=== PATIENT | male | born 1955 | race Caucasian/White ===

== ENCOUNTER 2020-11-05 09:50 | Emergency (ER) | payer BC ==
[2020-11-05 09:55] VITALS: BP 161/90; PULSE 115; TEMP 97.6; BMI 25.8
[2020-11-05 11:20] LABS: BASO % 0.1 % (0-2.0); HEMATOCRIT 43.7 % (35.4-49); HEMOGLOBIN 14.6 GM/dL (11.7-16.9); LYMPH % 6.7 % (8-40); MCH 29.7 pg (25.7-33.7); MCHC 33.4 g/dl (32.0-35.9); MEAN CELL VOLUME 88.8 fl (80-96); MONO % 5.4 % (3.8-10.2); NEUT % 87.8 % (42.8-82.8); PLATELET COUNT 197 K/MM3 (134-434); RBC 4.92 M/mm3 (4.00-5.60); RDW 13.3 % (11.9-15.9); WHITE BLOOD COUNT 12.8 K/mm3 (4.0-10.0)
[2020-11-05 11:33] LABS: POTASSIUM 3.9 mmol/L (3.5-5.1)
[2020-11-05 11:35] LABS: CALCIUM 9.7 mg/dL (8.5-10.1)
[2020-11-05 11:36] LABS: ALBUMIN 4.1 g/dl (3.4-5.0); BLOOD UREA NITROGEN 9.4 mg/dL (7-18)
[2020-11-05 11:39] LABS: CREATININE 0.8 mg/dL (0.55-1.3)
[2020-11-05 11:40] LABS: BILIRUBIN,TOTAL 0.7 mg/dL (0.2-1); TOT PROT 7.2 g/dl (6.4-8.2)
[2020-11-05 11:50] LABS: EPI CELLS 0 /uL (0-25.1); HYALINE CASTS 0 /uL (0-3.1); PH,URINE 5.5 (5.0-8.0); URINE APPEARANCE CLEAR; URINE BACTERIA 3 /uL (0-1359); URINE BILIRUBIN NEGATIVE (NEGATIVE); URINE COLOR YELLOW; URINE GLUCOSE (UA) NEGATIVE (NEGATIVE); URINE KETONE NEGATIVE (NEGATIVE); URINE LEUK ESTERASE NEGATIVE (NEGATIVE); URINE NITRITE NEGATIVE (NEGATIVE); URINE PROTEIN NEGATIVE (NEGATIVE); URINE RBC 1 /uL (0-23.9); URINE UROBILINOGEN 0.2 mg/dL (0.2-1.0); URINE WBC 0 /uL (0-25.8)
== END 2020-11-05 13:34 | disposition home or self-care (01) ==
LOC: JER 09:50
DX: N20.0 Calculus of kidney (principal)
CPT/HCPCS: 36415; 74176-TC; 80053; 81003; 83690; 85025; 87086; 99284-25

== ENCOUNTER 2021-09-21 06:29 | Emergency (ER) | payer BC ==
[2021-09-21 06:46] VITALS: BMI 25.8
[2021-09-21] MEDS ORDERED: SODIUM CHLORIDE 0.9% 500 ML INFUS.BAG IV ONE (08:13)
[2021-09-21] MEDS ORDERED: MECLIZINE HCL 25 MG TABLET (FP) PO ONE (08:13)
[2021-09-21 08:25] LABS: BASO % 0.2 % (0-2.0); EOS % 0.2 % (0-4.5); HEMATOCRIT 46.1 % (35.4-49); LYMPH % 13.7 % (8-40); MCH 30.3 pg (25.7-33.7); MCHC 34.6 g/dl (32.0-35.9); MEAN CELL VOLUME 87.5 fl (80-96); MEAN PLT VOLUME 8.3 fl (7.5-11.1); NEUT % 78.9 % (42.8-82.8); PLATELET COUNT 209 10^3/uL (134-434); RBC 5.27 M/mm3 (4.00-5.60); RDW 13.6 % (11.9-15.9); WHITE BLOOD COUNT 8.8 K/mm3 (4.0-10.0)
[2021-09-21] MEDS ORDERED: MECLIZINE HCL 25 MG TABLET (FP) ONE (08:25)
[2021-09-21 08:45] LABS: CHLORIDE 101 mmol/L (98-107); SODIUM 138 mmol/L (136-145)
[2021-09-21 08:47] LABS: CALCIUM 9.3 mg/dL (8.5-10.1)
[2021-09-21 08:48] LABS: ANION GAP 8 MMOL/L (8-16); BLOOD UREA NITROGEN 16.4 mg/dL (7-18); CO2 29 mmol/L (21-32); GLUCOSE,RANDOM 116 mg/dL (74-106); MAGNESIUM 2.1 mg/dL (1.8-2.4)
[2021-09-21 08:51] LABS: CREATININE 0.9 mg/dL (0.55-1.3); SGOT/AST 35 U/L (15-37); SGPT/ALT 51 U/L (13-61)
[2021-09-21 08:52] LABS: BILIRUBIN,TOTAL 0.7 mg/dL (0.2-1); TOT PROT 7.4 g/dl (6.4-8.2)
[2021-09-21 08:54] LABS: ALK PHOS 55 U/L (45-117)
[2021-09-21 09:58] VITALS: BP 165/84; PULSE 87
== END 2021-09-21 10:16 | disposition home or self-care (01) ==
LOC: JER 06:29
DX: R42 Dizziness and giddiness (principal)
CPT/HCPCS: 36415; 71046-TC-FY; 80053; 83735; 84484; 85025; 93005; 93010; 99285-25